=== PATIENT | male | born 2000 | race African-American/Black ===

== ENCOUNTER 2025-02-12 07:43 | Emergency (ER) | payer SELFPAY ==
[~2025-02-12] VITALS: Ht 175.3 cm; Wt 75.0 kg
[2025-02-12 07:51] VITALS: BP 121/81; TEMP 36.8; O2SAT 100
[2025-02-12 07:52] VITALS: PULSE 71; RESP 18; O2SAT 99
[2025-02-12] MEDS ORDERED: P50 MT (08:20)
[2025-02-12] MEDS ORDERED: FAMO40TA70 MT (08:20)
[2025-02-12] MEDS: PREDNISONE 20MG TABLET PO ONE (08:28)
[2025-02-12] MEDS: FAMOTIDINE 20MG TABLET PO STA (08:29)
== END 2025-02-12 08:39 | disposition home or self-care (01) ==
LOC: ER 08:08
DX: T78.40XA Allergy, unspecified, initial encounter (principal); Y92.89 Other specified places as the place of occurrence of the external cause
CPT/HCPCS: 99283; J7512